=== PATIENT | female | born 1960 | race Caucasian/White ===

== ENCOUNTER 2020-09-19 16:56 | Inpatient (IN) | payer BC ==
[2020-09-19] MEDS ORDERED: Sodium Chloride 0.9% 1,000 ML IV STA (17:28)
[2020-09-19] MEDS ORDERED: Ondansetron 4 MG/2 ML SDV IVPUSH ONE (17:28)
[2020-09-19] MEDS ORDERED: HYDROmorphone 1 MG/ML Syringe IVPUSH ONE (17:29)
[2020-09-19] MEDS: Sodium Chloride 0.9% 10 ML Syringe FLUSH PRN ×2 (17:37→19:18)
--- NOTE | 2020-09-19 17:44 | EDM.PDOC ---
ED HPI GENERAL MEDICAL PROBLEM - General Chief Complaint: Abdominal Pain Stated Complaint: ABDOMINAL PAIN Time Seen by Provider: 09/19/20 17:09 Source of Information: Reports: Patient History Limitations: Reports: No Limitations - History of Present Illness INITIAL COMMENTS - FREE TEXT/NARRATIVE: The patient presents with abdominal pain. This started this morning. The pain is all over her abdomen. She denies nausea or vomiting. She has no fever, cough, chest pain, shortness of breath, diarrhea or dysuria. She still has her appendix and gallbladder. Onset: Gradual Duration: Hour(s): Location: Reports: Abdomen Quality: Reports: Sharp Severity: Moderate Improves with: Reports: None Worsens with: Reports: None Associated Symptoms: Reports: Fever/Chills. Denies: Chest Pain, Cough, Headaches, Nausea/Vomiting, Shortness of Breath Abdomen Pain Score (Numeric/FACES): 8 - Related Data Allergies Allergy/AdvReac Type Severity Reaction Status Date / Time azithromycin [From Zithromax] Allergy Severe Rash Verified 09/19/20 17:08 Home Meds: Home Meds . [No Known Home Meds] 09/19/20 [History] Past Medical History - Past Surgical History Female Surgical History: Reports: Section Social & Family History - Tobacco Use Tobacco Use Status *Q: Never Tobacco User - Recreational Drug Use Recreational Drug Use: No ED ROS GENERAL - Review of Systems Review Of Systems: See Below Constitutional: Reports: Chills. Denies: Fever HEENT: Reports: No Symptoms Respiratory: Reports: No Symptoms Cardiovascular: Reports: No Symptoms Endocrine: Reports: No Symptoms GI/Abdominal: Reports: Abdominal Pain. Denies: Diarrhea, Nausea, Vomiting : Reports: No Symptoms Musculoskeletal: Reports: No Symptoms ED EXAM, GI/ABD - Physical Exam Exam: See Below Exam Limited By: No Limitations General Appearance: Alert, No Apparent Distress Ears: Normal External Exam Nose: Normal Inspection Head: Atraumatic, Normocephalic Neck: Normal Inspection Respiratory/Chest: No Respiratory Distress, Lungs Clear, Normal Breath Sounds Cardiovascular: Regular Rate, Rhythm, No Edema, No Murmur GI/Abdominal Exam: Soft, No Organomegaly, No Mass, Tender (Moderate tenderness to the entire abdomen) Course - Vital Signs Last Recorded V/S: Last Vital Signs Temp 97.2 F 09/19/20 17:06 Pulse 58 L 09/19/20 17:06 Resp 16 09/19/20 17:06 BP 154/76 H 09/19/20 17:06 Pulse Ox 98 09/19/20 17:06 - Orders/Labs/Meds Orders: Active Orders 24 hr Category Date Time Status Peripheral IV Care [RC] . DIRECTED Care 09/19/20 17:28 Active Abdomen Pelvis w Cont [CT] Stat Exams 09/19/20 17:28 Taken CORONAVIRUS COVID-19 JOON [MOLEC] Stat Lab 09/19/20 19:36 Ordered Lactated Ringers [Ringers, Lactated] 1,000 ml Med 09/19/20 18:45 Active IV ASDIRECTED Piperacillin/Tazobactam [Piperacil-Tazobact] 4.5 gm Med 09/19/20 19:40 Active Sodium Chloride 0.9% [Normal Saline] 100 ml IV ONETIME Sodium Chloride 0.9% [Saline Flush] Med 09/19/20 18:30 Active 10 ml FLUSH ASDIRECTED Sodium Chloride 0.9% [Saline Flush] Med 09/19/20 17:28 Active 10 ml FLUSH ASDIRECTED PRN ED Antiemetic Medication Reflex [OM.PC] Stat Oth 09/19/20 17:28 Ordered Peripheral IV Insertion Adult [OM.PC] Stat Oth 09/19/20 17:28 Ordered Medication Orders Lactated Ringer's (Ringers, Lactated) 1,000 mls @ 100 mls/hr IV ASDIRECTED ANA LAURA Piperacillin Sod/Tazobactam (Sod 4.5 gm/ Sodium Chloride) 100 mls @ 200 mls/hr IV ONETIME ONE Stop: 09/19/20 20:09 Sodium Chloride (Sodium Chloride 0.9% 10 Ml Syringe) 10 ml FLUSH ASDIRECTED PRN PRN Reason: Keep Vein Open Last Admin: 09/19/20 19:18 Dose: 10 ml Documented by: Admin: 09/19/20 17:37 Dose: 10 ml Documented by: BRADLEY Sodium Chloride (Sodium Chloride 0.9% 10 Ml Syringe) 10 ml FLUSH ASDIRECTED [facility] Labs: Laboratory Tests 09/19/20 09/19/20 09/19/20 Range/Units 17:40 17:40 18:31 WBC 17.25 H (3.98-10.04) K/mm3 RBC 4.91 (3.98-5.22) M/mm3 Hgb 15.3 (11.2-15.7) gm/dl Hct 44.5 (34.1-44.9) % MCV 90.6 D (79.4-94.8) fl MCH 31.2 (25.6-32.2) pg MCHC 34.4 (32.2-35.5) g/dl RDW Std Deviation 39.9 (36.4-46.3) fL Plt Count 273 (182-369) K/mm3 MPV 10.9 (9.4-12.3) fl Neut % (Auto) 83.6 H (34.0-71.1) % Lymph % (Auto) 10.4 L (19.3-51.7) % [place] % (Auto) 5.2 (4.7-12.5) % Eos % (Auto) 0.1 L (0.7-5.8) Baso % (Auto) 0.2 (0.1-1.2) % Neut # (Auto) 14.43 H (1.56-6.13) K/mm3 Lymph # (Auto) 1.80 (1.18-3.74) K/mm3 [place] # (Auto) 0.89 H (0.24-0.36) K/mm3 Eos # (Auto) 0.02 L (0.04-0.36) K/mm3 Baso # (Auto) 0.03 (0.01-0.08) K/mm3 Manual Slide Review Sodium 138 (136-145) mEq/L Potassium 3.4 L (3.5-5.1) mEq/L Chloride 100 (98-107) mEq/L Carbon Dioxide 23 (21-32) mEq/L Anion Gap 18.4 H (5-15) BUN 18 (7-18) mg/dL Creatinine 0.9 (0.55-1.02) mg/dL Est Cr Clr Drug Dosing 69.47 mL/min Estimated GFR (MDRD) > 60 (>60) mL/min BUN/Creatinine Ratio 20.0 H (14-18) Glucose 123 H (74-106) mg/dL Calcium 9.2 (8.5-10.1) mg/dL Total Bilirubin 0.9 (0.2-1.0) mg/dL AST 17 (15-37) U/L ALT 33 (14-59) U/L Alkaline Phosphatase 95 (46-116) U/L Total Protein 7.9 (6.4-8.2) g/dl Albumin 3.9 (3.4-5.0) g/dl Globulin 4.0 gm/dL Albumin/Globulin Ratio 1.0 (1-2) Lipase 126 (73-393) U/L Urine Color Yellow (Yellow) Urine Appearance Slt cloudy H (Clear) Urine pH 6.5 (5.0-8.0) Ur Specific [place] > or = 1.030 (1.005-1.030) Urine Protein Trace H (Negative) Urine Glucose (UA) Negative (Negative) Urine Ketones 1+ H (Negative) Urine Occult Blood 1+ H (Negative) Urine Nitrite Negative (Negative) Urine Bilirubin Negative (Negative) Urine Urobilinogen 0.2 (0.2-1.0) Ur Leukocyte Esterase Negative (Negative) Urine RBC 5-10 H (0-5) /hpf Urine WBC 0-5 (0-5) /hpf Ur Squamous Epith Cells 0-5 (0-5) /hpf Urine Bacteria Few (FEW) /hpf Urine Mucus Many H (FEW) /hpf Meds: Medications Generic Name Dose Route Start Last Admin Trade Name Freq PRN Reason Stop Dose Admin Lactated Ringer's 1,000 mls @ 100 mls/hr 09/19/20 18:45 Ringers, Lactated IV ASDIRECTED ANA LAURA Piperacillin Sod/Tazobactam 100 mls @ 200 mls/hr 09/19/20 19:40 Sod 4.5 gm/ Sodium Chloride IV 09/19/20 20:09 ONETIME ONE Sodium Chloride 10 ml 09/19/20 17:28 09/19/20 19:18 Sodium Chloride 0.9% 10 Ml Syringe FLUSH 10 ml ASDIRECTED PRN Administration Keep Vein Open Sodium Chloride 10 ml 09/19/20 18:30 Sodium Chloride 0.9% 10 Ml Syringe FLUSH ASDIRECTED ANA LAURA Discontinued Medications Generic Name Dose Route Start Last Admin Trade Name Freq PRN Reason Stop Dose Admin Diatrizoate Meglum/Diatrizoate Sod 120 ml 09/19/20 18:16 09/19/20 19:17 Diatrizoate Meglumine/Diatrizoate Sodium 37% 120 Ml Bottle PO 09/19/20 18:17 45 ml ONETIME ONE Administration Hydromorphone HCl 1 mg 09/19/20 17:29 09/19/20 17:36 Hydromorphone 1 Mg/Ml Syringe IVPUSH 09/19/20 17:30 1 mg ONETIME ONE Administration Sodium Chloride 1,000 mls @ 1,000 mls/hr 09/19/20 17:28 09/19/20 17:36 Normal Saline IV 09/19/20 18:27 1,000 mls/hr .BOLUS STA Administration Iopamidol 50 ml 09/19/20 18:16 09/19/20 19:18 Iopamidol 612 Mg/Ml 50 Ml Sdv IVPUSH 09/19/20 18:17 50 ml ONETIME ONE Administration Iopamidol 100 ml 09/19/20 18:16 09/19/20 19:18 Iopamidol 612 Mg/Ml 100 Ml Bottle IVPUSH 09/19/20 18:17 100 ml ONETIME ONE Administration Metoclopramide HCl 10 mg 09/19/20 18:35 09/19/20 18:39 Metoclopramide 10 Mg/2 Ml Sdv IVPUSH 09/19/20 18:36 10 mg ONETIME ONE Administration Ondansetron HCl 4 mg 09/19/20 17:28 09/19/20 17:36 Ondansetron 4 Mg/2 Ml Sdv IVPUSH 09/19/20 17:29 4 mg ONETIME ONE Administration - Re-Assessments/Exams Free Text/Narrative Re-Assessment/Exam: 09/19/20 17:43 I ordered an IV NS 1L bolus, zofran 4mg IV, dilaudid 1mg IV, labs, UA and a CT of her abdomen and pelvis with IV and oral contrast. 09/19/20 18:58 His WBC was elevated at 17.25. Her K was a little low at 3.4. Her anion gap is elevated at 18.4. Her glucose is elevated at 123. Her lipase is normal. Her UA shows no UTI. She did vomit after drinking the contrast. I ordered reglan 10mg IV. She will be getting the CT now. 09/19/20 19:[address] shows acute appendicitis. I called Dr Ash. She will come see the patient. She wants zosyn 4.5 grams IV. Departure - Departure Time of Disposition: 19:45 Disposition: DC/Tfer to [facility] Condition: Fair Clinical Impression: Appendicitis Qualifiers: Appendicitis type: acute appendicitis Acute appendicitis type: other Qualified Code(s): K35.890 - Other acute appendicitis without perforation or gangrene; K35.89 - Other acute appendicitis - Discharge Information Referrals: PCP,None [Primary Care Provider] - Forms: ED Department Discharge Sepsis Event Note (ED) - Evaluation Sepsis Screening Result: No Definite Risk - Focused Exam Vital Signs: Vital Signs Temp Pulse Resp BP Pulse Ox 09/19/20 17:06 97.2 F 58 L 16 154/76 H 98 - My Orders Last 24 Hours: My Active Orders 09/19/20 17:28 Peripheral IV Care [RC] . DIRECTED Abdomen Pelvis w Cont [CT] Stat Sodium Chloride 0.9% [Saline Flush] 10 ml FLUSH ASDIRECTED PRN ED Antiemetic Medication Reflex [OM.PC] Stat Peripheral IV Insertion Adult [OM.PC] Stat 09/19/20 18:30 Sodium Chloride 0.9% [Saline Flush] 10 ml FLUSH ASDIRECTED 09/19/20 18:45 Lactated Ringers [Ringers, Lactated] 1,000 ml IV ASDIRECTED 09/19/20 19:36 CORONAVIRUS COVID-19 JOON [MOLEC] Stat 09/19/20 19:40 Piperacillin/Tazobactam [Piperacil-Tazobact] 4.5 gm Sodium Chloride 0.9% [Normal Saline] 100 ml IV ONETIME - Assessment/Plan Last 24 Hours: My Active Orders 09/19/20 17:28 Peripheral IV Care [RC] . DIRECTED Abdomen Pelvis w Cont [CT] Stat Sodium Chloride 0.9% [Saline Flush] 10 ml FLUSH ASDIRECTED PRN ED Antiemetic Medication Reflex [OM.PC] Stat Peripheral IV Insertion Adult [OM.PC] Stat 09/19/20 18:30 Sodium Chloride 0.9% [Saline Flush] 10 ml FLUSH ASDIRECTED 09/19/20 18:45 Lactated Ringers [Ringers, Lactated] 1,000 ml IV ASDIRECTED 09/19/20 19:36 CORONAVIRUS COVID-19 JOON [MOLEC] Stat 09/19/20 19:40 Piperacillin/Tazobactam [Piperacil-Tazobact] 4.5 gm Sodium Chloride 0.9% [Normal Saline] 100 ml IV ONETIME
[2020-09-19] MEDS ORDERED: Diatrizoate Meglumine/Diatrizoate Sodium 37% 120 ML Bottle PO ONE (18:16)
[2020-09-19] MEDS ORDERED: Iopamidol 612 MG/ML 50 ML SDV IVPUSH ONE (18:16)
[2020-09-19] MEDS ORDERED: Iopamidol 612 MG/ML 100 ML Bottle IVPUSH ONE (18:16)
[2020-09-19] MEDS ORDERED: Sodium Chloride 0.9% 10 ML Syringe FLUSH SCH (18:30)
[2020-09-19] MEDS ORDERED: Metoclopramide 10 MG/2 ML SDV IVPUSH ONE (18:35)
[2020-09-19] MEDS ORDERED: Lactated Ringers 1,000 ML IV SCH (18:45)
[2020-09-19] MEDS ORDERED: Piperacillin/Tazobactam 4.5 GM in Sodium Chloride 0.9% 100 ML IV ONE (19:40)
--- NOTE | 2020-09-19 19:42 | CT ---
CT abdomen and pelvis Technique: Multiple axial sections were obtained from above the dome of the diaphragm inferiorly through the pubic symphysis. Intravenous and oral contrast was utilized. Delayed images were also obtained through the bladder. Reconstructed coronal and sagittal images were obtained. Comparison: No prior abdominal imaging is available. Findings: Appendix is dilated and contains fluid as well as mild surrounding inflammatory change. Findings are felt compatible with appendicitis. Other findings: Multiple small air cysts are seen within both lungs. Liver shows no focal parenchymal abnormality but contains mild fatty infiltration. Spleen is normal. Adrenal glands show no nodule. Pancreas shows no focal abnormality. Gallbladder contains no calcified gallstones. Kidneys show symmetric contrast enhancement without hydronephrosis or mass. Abdominal aorta shows no aneurysm. No retroperitoneal adenopathy or mesenteric abnormalities are seen. No pelvic mass or adenopathy is appreciated. Delayed images show contrast within the ureters and within the bladder. Bone window settings were reviewed. Vacuum disc phenomena is seen within the L5-S1 disc. Degenerative change is also noted within the L5-S1 apophyseal joints. No acute osseous abnormality is appreciated. Impression: 1. Findings compatible with appendicitis as noted above. 2. Multiple small air cysts within both lungs. 3. Other findings believed to be incidental as noted above. Diagnostic code #5
--- NOTE | 2020-09-19 20:07 | PCM.PREANE ---
Preanesthetic Assessment - Procedure Proposed Procedure: Laparoscopic Appendectomy - Anesthesia/Transfusion/Family Hx Anesthesia History: Prior Anesthesia Without Reaction Family History of Anesthesia Reaction: No Transfusion History: No Prior Transfusion(s) Intubation History: Unknown - Review of Systems General: No Symptoms Pulmonary: No Symptoms (Smoker:quit 1999 ETOH: occasionaly Covid + in March 2020) Cardiovascular: No Symptoms Gastrointestinal: No Symptoms Neurological: No Symptoms Other: Reports: None - Physical Assessment NPO Status Date: 09/19/20 NPO Status Time: 17:30 Vital Signs: Last Vital Signs Temp 36.2 C 09/19/20 17:06 Pulse 58 L 09/19/20 17:06 Resp 16 09/19/20 17:06 BP 154/76 H 09/19/20 17:06 Pulse Ox 98 09/19/20 17:06 Height: 1.75 m Weight: 107.819 kg ASA Class: 3E Mental Status: Alert & Oriented x3 Airway Class: Mallampati = 2 Dentition: Reports: Normal Dentition, Caries Thyro-Mental Finger Breadths: 3 Mouth Opening Finger Breadths: 3 ROM/Head Extension: Full Lungs: Clear to Auscultation, Normal Respiratory Effort Cardiovascular: Regular Rate, Regular Rhythm, No Murmurs - Lab Values: Laboratory Last Values WBC 17.25 K/mm3 (3.98-10.04) H 09/19/20 17:40 RBC 4.91 M/mm3 (3.98-5.22) 09/19/20 17:40 Hgb 15.3 gm/dl (11.2-15.7) 09/19/20 17:40 Hct 44.5 % (34.1-44.9) 09/19/20 17:40 MCV 90.6 fl (79.4-94.8) D 09/19/20 17:40 MCH 31.2 pg (25.6-32.2) 09/19/20 17:40 MCHC 34.4 g/dl (32.2-35.5) 09/19/20 17:40 RDW Std Deviation 39.9 fL (36.4-46.3) 09/19/20 17:40 Plt Count 273 K/mm3 (182-369) 09/19/20 17:40 MPV 10.9 fl (9.4-12.3) 09/19/20 17:40 Neut % (Auto) 83.6 % (34.0-71.1) H 09/19/20 17:40 Lymph % (Auto) 10.4 % (19.3-51.7) L 09/19/20 17:40 [place] % (Auto) 5.2 % (4.7-12.5) 09/19/20 17:40 Eos % (Auto) 0.1 (0.7-5.8) L 09/19/20 17:40 Baso % (Auto) 0.2 % (0.1-1.2) 09/19/20 17:40 Neut # (Auto) 14.43 K/mm3 (1.56-6.13) H 09/19/20 17:40 Lymph # (Auto) 1.80 K/mm3 (1.18-3.74) 09/19/20 17:40 [place] # (Auto) 0.89 K/mm3 (0.24-0.36) H 09/19/20 17:40 Eos # (Auto) 0.02 K/mm3 (0.04-0.36) L 09/19/20 17:40 Baso # (Auto) 0.03 K/mm3 (0.01-0.08) 09/19/20 17:40 Manual Slide Review 09/19/20 17:40 Sodium 138 mEq/L (136-145) 09/19/20 17:40 Potassium 3.4 mEq/L (3.5-5.1) L 09/19/20 17:40 Chloride 100 mEq/L (98-107) 09/19/20 17:40 Carbon Dioxide 23 mEq/L (21-32) 09/19/20 17:40 Anion Gap 18.4 (5-15) H 09/19/20 17:40 BUN 18 mg/dL (7-18) 09/19/20 17:40 Creatinine 0.9 mg/dL (0.55-1.02) 09/19/20 17:40 Est Cr Clr Drug Dosing 69.47 mL/min 09/19/20 17:40 Estimated GFR (MDRD) > 60 mL/min (>60) 09/19/20 17:40 BUN/Creatinine Ratio 20.0 (14-18) H 09/19/20 17:40 Glucose 123 mg/dL (74-106) H 09/19/20 17:40 Calcium 9.2 mg/dL (8.5-10.1) 09/19/20 17:40 Total Bilirubin 0.9 mg/dL (0.2-1.0) 09/19/20 17:40 AST 17 U/L (15-37) 09/19/20 17:40 ALT 33 U/L (14-59) 09/19/20 17:40 Alkaline Phosphatase 95 U/L (46-116) 09/19/20 17:40 Total Protein 7.9 g/dl (6.4-8.2) 09/19/20 17:40 Albumin 3.9 g/dl (3.4-5.0) 09/19/20 17:40 Globulin 4.0 gm/dL 09/19/20 17:40 Albumin/Globulin Ratio 1.0 (1-2) 09/19/20 17:40 Lipase 126 U/L (73-393) 09/19/20 17:40 Urine Color Yellow (Yellow) 09/19/20 18:31 Urine Appearance Slt cloudy (Clear) H 09/19/20 18:31 Urine pH 6.5 (5.0-8.0) 09/19/20 18:31 Ur Specific [place] > or = 1.030 (1.005-1.030) 09/19/20 18:31 Urine Protein Trace (Negative) H 09/19/20 18:31 Urine Glucose (UA) Negative (Negative) 09/19/20 18:31 Urine Ketones 1+ (Negative) H 09/19/20 18:31 Urine Occult Blood 1+ (Negative) H 09/19/20 18:31 Urine Nitrite Negative (Negative) 09/19/20 18:31 Urine Bilirubin Negative (Negative) 09/19/20 18:31 Urine Urobilinogen 0.2 (0.2-1.0) 09/19/20 18:31 Ur Leukocyte Esterase Negative (Negative) 09/19/20 18:31 Urine RBC 5-10 /hpf (0-5) H 09/19/20 18:31 Urine WBC 0-5 /hpf (0-5) 09/19/20 18:31 Ur Squamous Epith Cells 0-5 /hpf (0-5) 09/19/20 18:31 Urine Bacteria Few /hpf (FEW) 09/19/20 18:31 Urine Mucus Many /hpf (FEW) H 09/19/20 18:31 Above labs reviewed and noted and within acceptable ranges to proceed with procedure. - Allergies Allergies/Adverse Reactions: Allergies Allergy/AdvReac Type Severity Reaction Status Date / Time azithromycin [From Zithromax] Allergy Severe Rash Verified 09/19/20 17:08 - Anesthesia Plan Pre-Op Medication Ordered: None - Acknowledgements Anesthesia Type Planned: General Anesthesia Pt an Appropriate Candidate for the Planned Anesthesia: Yes Alternatives and Risks of Anesthesia Discussed w Pt/Guardian: Yes Pt/Guardian Understands and Agrees with Anesthesia Plan: Yes PreAnesthesia Questionnaire - Past Surgical History Female Surgical History: Reports: Section - SUBSTANCE USE Tobacco Use Status *Q: Never Tobacco User Recreational Drug Use History: No - HOME MEDS Home Medications: Home Meds . [No Known Home Meds] 09/19/20 [History] - CURRENT (IN HOUSE) MEDS Current Meds: Current Medications Lactated Ringer's (Ringers, Lactated) 1,000 mls @ 100 mls/hr IV ASDIRECTED ANA LAURA Piperacillin Sod/Tazobactam (Sod 4.5 gm/ Sodium Chloride) 100 mls @ 200 mls/hr IV ONETIME ONE Stop: 09/19/20 20:09 Last Admin: 09/19/20 19:53 Dose: 200 mls/hr Documented by: Sodium Chloride (Sodium Chloride 0.9% 10 Ml Syringe) 10 ml FLUSH ASDIRECTED PRN PRN Reason: Keep Vein Open Last Admin: 09/19/20 19:18 Dose: 10 ml Documented by: Sodium Chloride (Sodium Chloride 0.9% 10 Ml Syringe) 10 ml FLUSH ASDIRECTED ANA LAURA Discontinued Medications Diatrizoate Meglum/Diatrizoate Sod (Diatrizoate Meglumine/Diatrizoate Sodium 37% 120 Ml Bottle) 120 ml PO ONETIME ONE Stop: 09/19/20 18:17 Last Admin: 09/19/20 19:17 Dose: 45 ml Documented by: Hydromorphone HCl (Hydromorphone 1 Mg/Ml Syringe) 1 mg IVPUSH ONETIME ONE Stop: 09/19/20 17:30 Last Admin: 09/19/20 17:36 Dose: 1 mg Documented by: Sodium Chloride (Normal Saline) 1,000 mls @ 1,000 mls/hr IV .BOLUS STA Stop: 09/19/20 18:27 Last Admin: 09/19/20 17:36 Dose: 1,000 mls/hr Documented by: Iopamidol (Iopamidol 612 Mg/Ml 50 Ml Sdv) 50 ml IVPUSH ONETIME ONE Stop: 09/19/20 18:17 Last Admin: 09/19/20 19:18 Dose: 50 ml Documented by: Iopamidol (Iopamidol 612 Mg/Ml 100 Ml Bottle) 100 ml IVPUSH ONETIME ONE Stop: 09/19/20 18:17 Last Admin: 09/19/20 19:18 Dose: 100 ml Documented by: Metoclopramide HCl (Metoclopramide 10 Mg/2 Ml Sdv) 10 mg IVPUSH ONETIME ONE Stop: 09/19/20 18:36 Last Admin: 09/19/20 18:39 Dose: 10 mg Documented by: Ondansetron HCl (Ondansetron 4 Mg/2 Ml Sdv) 4 mg IVPUSH ONETIME ONE Stop: 09/19/20 17:29 Last Admin: 09/19/20 17:36 Dose: 4 mg Documented by:
[2020-09-19] MEDS: Bupivacaine 0.5%/EPINEPHrine 1:200,000 50 ML MDV ONE ×2 (20:39→21:33)
[2020-09-19] MEDS: Lidocaine 1% with EPINEPHrine 1:100,000 10 ML MDV ONE ×2 (20:39→21:33)
[2020-09-19] MEDS ORDERED: HYDROmorphone 0.5 MG/0.5 ML Syringe ONE ×2 (20:41→22:25)
[2020-09-19] MEDS ORDERED: Ketorolac 30 MG/ML SDV ONE (20:41)
[2020-09-19] MEDS ORDERED: Dexamethasone 4 MG/ML 5 ML MDV ONE (20:41)
[2020-09-19] MEDS ORDERED: Succinylcholine/Sod PF 100 MG/5 ML SYRINGE IV ONE (20:41)
[2020-09-19] MEDS ORDERED: Ondansetron 4 MG/2 ML SDV ONE (20:41)
[2020-09-19] MEDS ORDERED: Lactated Ringers 2,000 ML ONE (20:41)
[2020-09-19] MEDS ORDERED: Propofol 200 MG/20 ML SDV ONE (20:41)
[2020-09-19] MEDS ORDERED: Rocuronium 50 MG/5 ML Vial ONE ×2 (20:41→22:12)
[2020-09-19] MEDS ORDERED: Lidocaine 1% 4 ML ONE (20:41)
[2020-09-19] MEDS ORDERED: Midazolam 1 MG/ML 2 ML SDV ONE (20:42)
[2020-09-19] MEDS ORDERED: fentaNYL 250 MCG/5 ML SDV ONE ×2 (20:42→21:39)
[2020-09-19] MEDS ORDERED: ePHEDrine 50 MG/ML SDV ONE (21:16)
[2020-09-19] MEDS ORDERED: diphenhydrAMINE 50 MG/ML SDV IVPUSH PRN (21:21)
[2020-09-19] MEDS ORDERED: Ondansetron 4 MG/2 ML SDV IVPUSH PRN (21:21)
[2020-09-19] MEDS ORDERED: ePHEDrine 50 MG/ML SDV IVPUSH PRN (21:21)
[2020-09-19] MEDS ORDERED: fentaNYL 100 MCG/2 ML SDV IVPUSH PRN (21:21)
[2020-09-19] MEDS ORDERED: HYDROmorphone 0.5 MG/0.5 ML Syringe IVPUSH PRN (21:21)
[2020-09-19] MEDS ORDERED: Labetalol 100 MG/20 ML MDV ONE (21:46)
[2020-09-19] MEDS ORDERED: Lactated Ringers 1,000 ML ONE (22:40)
[2020-09-19] MEDS ORDERED: Albuterol 0.083% 2.5 MG/3 ML Neb Soln NEB PRN (22:50)
--- NOTE | 2020-09-20 00:38 | PCM.OPNOTE ---
- General Post-Op/Procedure Note Date of Surgery/Procedure: 09/20/20 Operative Procedure(s): 1. Laparoscopic appendectomy, converted to open. 2. Repair of enterotomy. 3. Mobilization of cecum. 4. Lysis of adhesions Findings: Acute appendicitis with friable appendix; ruptured with stapling. Additional friable tissue on cecum necessitating open procedure for oversewing of appendiceal stump and repair of enterotomy. Lower midline adhesions present from previous c-sections. Pre Op Diagnosis: Acute appendicitis Post-Op Diagnosis: same Anesthesia Technique: General ET Tube Primary Surgeon: Carmela Castillo Anesthesia Provider: Vianney Livingston Pathology: Appendix Fluid Replacement, Intraop: 2,000 Output, Urine Amount: 0 EBL in mLs: 150 Complications: none apparent Condition: Good
--- NOTE | 2020-09-20 00:39 | PCM.PRNOTE ---
- Free Text/Narrative Note: Operative Report Date of surgery: September 20, 2020 Preoperative diagnosis: acute appendicitis. Postoperative diagnosis: same Procedure performed: 1. Laparoscopic appendectomy, converted to open. 2. Repair of enterotomy. 3. Mobilization of cecum 4. Lysis of adhesions Surgeon: Dr. Carmela Castillo Anesthesia: General Inside Plant Supervisor: Vianney Livingston CRNA Estimated blood loss: 150 mL IV fluids: 2000 mL Urine output: 0 mL Drains and lines: none Findings: Acute appendicitis with friable appendix; ruptured with stapling. Additional friable tissue on cecum necessitating open procedure for oversewing of appendiceal stump and repair of enterotomy. Lower midline adhesions present from previous c-sections. Pathology: Appendix Indications for procedure: The patient is a 60 y/o lady who presented with a one day history of pain in the upper abdomen, radiating throughout the whole abdomen. She reports associated nausea and vomiting. She had ED evaluation consistent with acute appendicitis. She was counseled for a laparoscopic appendectomy, possible open with risks of intraabdominal injury, bleeding and in fection discussed. Her written consent was obtained. Description of procedure: The patient was taken back to the operating room and placed in supine position on the operating table. SCD boots were in place and functional prior to the start of the procedure. Preoperative antibiotics were administered in the ED for the patient's acute appendicitis. The patient had successful induction of general anesthesia and was intubated without difficulty. Pt was then prepped and draped in standard surgical fashion and a timeout was performed. We began by making a 15 mm incision in the infraumbilical skin and deepened down to level of the fascia which was then grasped and incised sharply. We entered the peritoneum and then placed stay sutures of 0 Vicryl on the fascial edges. A 12 mm Arnold port was then placed into the umbilicus and the balloon was inflated. The abdomen was insufflated to 15 mmHg a 5 mm camera was inserted. There was no evidence of any injury created from entry into the abdomen. A TAP block was performed using mixed 1% lidocaine with epinephrine and 0.5% bupivacaine with epinephrine . We then proceeded to place a 5 mm port under direct visualization in the suprapubic midline and an additional 5mm port in the left lower quadrant. The patient was then positioned in Trendelenburg with right side elevated and we proceeded to mobilize the appendix. The appendix was retrocecal at its attachment, and extended into the pelvis. It was inflamed and friable. The mesoappendix was dissected free using the LigaSure. We then deployed a tissue staple load at the base of the appendix. When this was firing the appendix fractured underneath the staple line and there is purulent exudate from this area. There was also purulent exudate from the appendix. We then attempted to mobilize the cecum to facilitate a lower staple line over the very base of the appendix and part of the cecum. The cecal tissue was very thickened and friable. The fat pad between the cecum and the terminal ileum was removed for additional visualization. Attempts at grasping the cecum in this area for an additional staple line caused an enterotomy. It was determined at this point to convert the case to open. The infraumbilical incision was then extended to the lower midline to connect to the suprapubic incision. The Bovie device was used to open the fascia and subcutaneous fat. We then attempted to visualize the appendix and cecum. The omentum was very dense and thickened consistent with inflammatory and fibrous changes. It was adherent to the lower midline consistent with previous C- section scars. Adhesions were lysed in this area in order to fully open the midline incision for placement of retractors. This was done using Metzenbaum scissors as well as the Bovie device once we had completed this portion we were able to visualize the cecum. The specimen was removed. An enterotomy was noted on the lateral aspect of the cecum. This was repaired using erupted 3-0 silk L embert sutures. We then inspected the inferior portion of the cecum where the appendiceal stump was located. Additional mobilization of the cecum and part of the white line of Toldt was necessary to visualize the appendix more fully. There was some feculent discharge into the abdomen from the open appendiceal stump. The appendiceal stump was then oversewed using 3-0 Vicryl suture. There was an enterotomy extending up to the tenia. This was closed down to the level of the appendiceal stump using interrupted 3-0 silk Lembert sutures. Attempt was made to close tissue over the seal stump, however there was no movable tissue to cover this area due to the friability and inflammation of the tissues. We then inspected for hemostasis. Bleeding points were addressed in the mesentery using the LigaSure device. The abdomen was then irrigated with 2 L of warm saline. The fascia was closed with a running 0 PDS suture. The wound was irrigated and closed in 2 layers of 3-0 Vicryl interrupted sutures with two 4-0 Monocryl sutures placed in the central top layer of the midline incision. The additional left lateral port site was closed with 4-0 Monocryl. Mastisol and Steri-Strips were applied. The incisions were then covered with a dry dressing. The specimen was in place in the Endo Catch bag. We then inspected and suctioned up any blood in the area. There was no active bleeding at the end of this case. The abdomen was then desufflated and the umbilical fascia closed with 0 Vicryl sutures and the stay sutures were tied, effectively closing the umbilical port site. The skin was then reapproximated at all port sites using a 4-0 Monocryl subcutaneous stitch and covered with Dermabond surgical glue. The patient tolerated the procedure. She was extubated and transported to the PACU in stable condition. All sponge and needle counts were correct. Carmela Castillo MD General surgery
--- NOTE | 2020-09-20 00:41 | PCM.POSTAN ---
POST ANESTHESIA ASSESSMENT - MENTAL STATUS Mental Status: Alert - VITAL SIGNS Vital Signs: Last Vital Signs Temp 97.4 09/19/2032 Pulse 66 09/19/203 Resp 8 09/19/203 BP 139/71 09/19/203 Pulse Ox 96% 09/19/20 0033 - RESPIRATORY Respiratory Status: Respiratory Rate WNL, Airway Patent, O2 Saturation Stable, Supplemental Oxygen - CARDIOVASCULAR CV Status: Pulse Rate WNL, Blood Pressure Stable - GASTROINTESTINAL GI Status: No Symptoms - POST OP HYDRATION Hydration Status: Adequate & Stable
--- NOTE | 2020-09-20 01:04 | PCM.HP.2 ---
H&P History of Present Illness - General Date of Service: 09/20/20 Admit Problem/Dx: Admission Diagnosis/Problem Admission Diagnosis/Problem Appendicitis Source of Information: Patient, Provider History Limitations: Reports: No Limitations - History of Present Illness Initial Comments - Free Text/Narative: The patient is a 60 y/o lady who presented to the emergency department complaining of abdominal pain that started early on the day of presentation. She reports having normal bowel movements over the course of the day. She presented because her pain did not improve. She had associated nausea and vomiting. In the ED, she was found to have elevated WBC to 17K and CT abdomen findings consistent with acute appendicitis. Abdomen Pain Score (Numeric/FACES): 8 - Related Data Allergies/Adverse Reactions: Allergies Allergy/AdvReac Type Severity Reaction Status Date / Time azithromycin [From Zithromax] Allergy Severe Rash Verified 09/19/20 17:08 Home Medications: Home Meds . [No Known Home Meds] 09/19/20 [History] Past Medical History - Past Surgical History Female Surgical History: Reports: Section Social & Family History - Family History Cardiac: Reports: CAD Neurological: Reports: CVA Endocrine/Metabolic: Reports: Diabetes, Type I Oncologic: Reports: Renal - Tobacco Use Tobacco Use Status *Q: Never Tobacco User - Recreational Drug Use Recreational Drug Use: No H&P Review of Systems - Review of Systems: Review Of Systems: See Below General: Reports: No Symptoms HEENT: Reports: No Symptoms Pulmonary: Reports: No Symptoms Cardiovascular: Reports: No Symptoms Gastrointestinal: Reports: Abdominal Pain, Nausea, Vomiting Genitourinary: Reports: No Symptoms Musculoskeletal: Reports: No Symptoms Skin: Reports: No Symptoms Psychiatric: Reports: No Symptoms Neurological: Reports: No Symptoms Hematologic/Lymphatic: Reports: No Symptoms Exam - Exam Exam: See Below - Vital Signs Vital Signs: Last Vital Signs Temp 36.4 C 09/20/20 00:50 Pulse 62 09/20/20 00:50 Resp 10 L 09/20/20 00:50 BP 121/76 09/20/20 00:50 Pulse Ox 98 09/20/20 00:50 Weight: 107.819 kg - Exam Quality Assessment: No: Supplemental Oxygen General: Alert, Oriented HEENT: Conjunctiva Clear, EOMI Neck: Supple Lungs: Clear to Auscultation, Normal Respiratory Effort Cardiovascular: Regular Rate, Regular Rhythm GI/Abdominal Exam: Soft, Tender (in LLQ) Extremities: No Pedal Edema Peripheral Pulses: 2+: Dorsalis Pedis (L), Dorsalis Pedis (R) Skin: Warm, Dry, Intact Neurological: Cranial Nerves Intact Neuro Extensive - Mental Status: Oriented x3, Normal Mood/Affect - Patient Data Lab Results Last 24 hrs: Laboratory Results - last 24 hr 09/19/20 09/19/20 09/19/20 Range/Units 17:40 17:40 18:31 WBC 17.25 H (3.98-10.04) K/mm3 RBC 4.91 (3.98-5.22) M/mm3 Hgb 15.3 (11.2-15.7) gm/dl Hct 44.5 (34.1-44.9) % MCV 90.6 D (79.4-94.8) fl MCH 31.2 (25.6-32.2) pg MCHC 34.4 (32.2-35.5) g/dl RDW Std Deviation 39.9 (36.4-46.3) fL Plt Count 273 (182-369) K/mm3 MPV 10.9 (9.4-12.3) fl Neut % (Auto) 83.6 H (34.0-71.1) % Lymph % (Auto) 10.4 L (19.3-51.7) % [place] % (Auto) 5.2 (4.7-12.5) % Eos % (Auto) 0.1 L (0.7-5.8) Baso % (Auto) 0.2 (0.1-1.2) % Neut # (Auto) 14.43 H (1.56-6.13) K/mm3 Lymph # (Auto) 1.80 (1.18-3.74) K/mm3 [place] # (Auto) 0.89 H (0.24-0.36) K/mm3 Eos # (Auto) 0.02 L (0.04-0.36) K/mm3 Baso # (Auto) 0.03 (0.01-0.08) K/mm3 Manual Slide Review Sodium 138 (136-145) mEq/L Potassium 3.4 L (3.5-5.1) mEq/L Chloride 100 (98-107) mEq/L Carbon Dioxide 23 (21-32) mEq/L Anion Gap 18.4 H (5-15) BUN 18 (7-18) mg/dL Creatinine 0.9 (0.55-1.02) mg/dL Est Cr Clr Drug Dosing 69.47 mL/min Estimated GFR (MDRD) > 60 (>60) mL/min BUN/Creatinine Ratio 20.0 H (14-18) Glucose 123 H (74-106) mg/dL Calcium 9.2 (8.5-10.1) mg/dL Total Bilirubin 0.9 (0.2-1.0) mg/dL AST 17 (15-37) U/L ALT 33 (14-59) U/L Alkaline Phosphatase 95 (46-116) U/L Total Protein 7.9 (6.4-8.2) g/dl Albumin 3.9 (3.4-5.0) g/dl Globulin 4.0 gm/dL Albumin/Globulin Ratio 1.0 (1-2) Lipase 126 (73-393) U/L Urine Color Yellow (Yellow) Urine Appearance Slt cloudy H (Clear) Urine pH 6.5 (5.0-8.0) Ur Specific [place] > or = 1.030 (1.005-1.030) Urine Protein Trace H (Negative) Urine Glucose (UA) Negative (Negative) Urine Ketones 1+ H (Negative) Urine Occult Blood 1+ H (Negative) Urine Nitrite Negative (Negative) Urine Bilirubin Negative (Negative) Urine Urobilinogen 0.2 (0.2-1.0) Ur Leukocyte Esterase Negative (Negative) Urine RBC 5-10 H (0-5) /hpf Urine WBC 0-5 (0-5) /hpf Ur Squamous Epith Cells 0-5 (0-5) /hpf Urine Bacteria Few (FEW) /hpf Urine Mucus Many H (FEW) /hpf SARS-CoV-2 RNA (JOON) (NEGATIVE) 09/19/20 Range/Units 19:42 WBC (3.98-10.04) K/mm3 RBC (3.98-5.22) M/mm3 Hgb (11.2-15.7) gm/dl Hct (34.1-44.9) % MCV (79.4-94.8) fl MCH (25.6-32.2) pg MCHC (32.2-35.5) g/dl RDW Std Deviation (36.4-46.3) fL Plt Count (182-369) K/mm3 MPV (9.4-12.3) fl Neut % (Auto) (34.0-71.1) % Lymph % (Auto) (19.3-51.7) % [place] % (Auto) (4.7-12.5) % Eos % (Auto) (0.7-5.8) Baso % (Auto) (0.1-1.2) % Neut # (Auto) (1.56-6.13) K/mm3 Lymph # (Auto) (1.18-3.74) K/mm3 [place] # (Auto) (0.24-0.36) K/mm3 Eos # (Auto) (0.04-0.36) K/mm3 Baso # (Auto) (0.01-0.08) K/mm3 Manual Slide Review Sodium (136-145) mEq/L Potassium (3.5-5.1) mEq/L Chloride (98-107) mEq/L Carbon Dioxide (21-32) mEq/L Anion Gap (5-15) BUN (7-18) mg/dL Creatinine (0.55-1.02) mg/dL Est Cr Clr Drug Dosing mL/min Estimated GFR (MDRD) (>60) mL/min BUN/Creatinine Ratio (14-18) Glucose (74-106) mg/dL Calcium (8.5-10.1) mg/dL Total Bilirubin (0.2-1.0) mg/dL AST (15-37) U/L ALT (14-59) U/L Alkaline Phosphatase (46-116) U/L Total Protein (6.4-8.2) g/dl Albumin (3.4-5.0) g/dl Globulin gm/dL Albumin/Globulin Ratio (1-2) Lipase (73-393) U/L Urine Color (Yellow) Urine Appearance (Clear) Urine pH (5.0-8.0) Ur Specific [place] (1.005-1.030) Urine Protein (Negative) Urine Glucose (UA) (Negative) Urine Ketones (Negative) Urine Occult Blood (Negative) Urine Nitrite (Negative) Urine Bilirubin (Negative) Urine Urobilinogen (0.2-1.0) Ur Leukocyte Esterase (Negative) Urine RBC (0-5) /hpf Urine WBC (0-5) /hpf Ur Squamous Epith Cells (0-5) /hpf Urine Bacteria (FEW) /hpf Urine Mucus (FEW) /hpf SARS-CoV-2 RNA (JOON) Negative (NEGATIVE) Result Diagrams: 09/19/20 17:40 09/19/20 17:40 Sepsis Event Note - Evaluation Sepsis Screening Result: No Definite Risk - Focused Exam Vital Signs: Vital Signs Temp Pulse Resp BP Pulse Ox Pulse Ox 09/20/20 00:50 36.4 C 62 10 L 121/76 98 09/20/20 00:40 62 8 L 140/86 97 09/20/20 00:33 36.3 C 60 8 L 139/71 96 96 09/19/20 17:06 36.2 C 58 L 16 154/76 H 98 *Q Meaningful Use (ADM) - VTE Risk Assess *Q Each Risk Factor Represents 2 Points: Age 60 - 74 Years, Major surgery greater than 45 minutes Total Score 2 Point Risk Factors: 4 - Problem List (1) Appendicitis SNOMED Code(s): 64819414 ICD Code: K37 - UNSPECIFIED APPENDICITIS Status: Acute Current Visit: Yes Qualifiers: Appendicitis type: acute appendicitis Acute appendicitis type: other Qualified Code(s): K35.890 - Other acute appendicitis without perforation or [place]; K35.89 - Other acute appendicitis Problem List Initiated/Reviewed/Updated: Yes Orders Last 24hrs: Active Orders 24 hr Category Date Time Status Admission Status [Patient Status] [ADT] Routine ADT 09/19/20 19:46 Active Communication Order [RC] ROUTINE Care 09/19/20 21:21 Active Cooling Warming Measures [RC] ASDIRECTED Care 09/19/20 21:21 Active Notify Provider [RC] ASDIRECTED Care 09/19/20 21:21 Active Oxygen Therapy [RC] ASDIRECTED Care 09/19/20 21:20 Active Peripheral IV Care [RC] . DIRECTED Care 09/19/20 17:28 Active Pulse Oximetry [RC] ASDIRECTED Care 09/19/20 21:20 Active RT Aerosol Therapy [RC] ASDIRECTED Care 09/19/20 22:50 Active Vital Signs [RC] Q15M Care 09/19/20 21:20 Active Albuterol [Proventil Neb Soln] Med 09/19/20 22:50 Active 2.5 mg NEB ONETIME PRN HYDROmorphone [Dilaudid] Med 09/19/20 21:21 Active 0.5 mg IVPUSH Q10M PRN Lactated Ringers [Ringers, Lactated] 1,000 ml Med 09/19/20 18:45 Active IV ASDIRECTED Ondansetron [Zofran] Med 09/19/20 21:21 Active 4 mg IVPUSH ONETIME PRN Phenylephrine HCl In 0.9% NaCl [Phenylephrine 1 MG/10 Med 09/19/20 21:21 Active ML-NS] 0.1 mg IVPUSH Q10M PRN Sodium Chloride 0.9% [Saline Flush] Med 09/19/20 18:30 Active 10 ml FLUSH ASDIRECTED Sodium Chloride 0.9% [Saline Flush] Med 09/19/20 17:28 Active 10 ml FLUSH ASDIRECTED PRN diphenhydrAMINE [Benadryl] Med 09/19/20 21:21 Active 25 mg IVPUSH Q6H PRN ePHEDrine [ePHEDrine sulfate] Med 09/19/20 21:21 Active 5 mg IVPUSH ASDIRECTED PRN fentaNYL [Sublimaze] Med 09/19/20 21:21 Active 50 mcg IVPUSH Q20M PRN ED Antiemetic Medication Reflex [OM.PC] Stat Ot 09/19/20 17:28 Ordered Peripheral IV Insertion Adult [OM.PC] Stat Oth 09/19/20 17:28 Ordered Schedule Procedure [COMM] Stat Ot 09/19/20 19:47 Ordered Medication Orders Albuterol (Albuterol 0.083% 2.5 Mg/3 Ml Neb Soln) 2.5 mg NEB ONETIME PRN PRN Reason: bronchodilation Diphenhydramine HCl (Diphenhydramine 50 Mg/Ml Sdv) 25 mg IVPUSH Q6H PRN PRN Reason: pruritis Ephedrine Sulfate (Ephedrine 50 Mg/Ml Sdv) 5 mg IVPUSH ASDIRECTED PRN PRN Reason: Hypotension Fentanyl (Fentanyl 100 Mcg/2 Ml Sdv) 50 mcg IVPUSH Q20M PRN PRN Reason: Pain Hydromorphone HCl (Hydromorphone 0.5 Mg/0.5 Ml Syringe) 0.5 mg IVPUSH Q10M PRN PRN Reason: Pain (severe 7-10) Lactated Ringer's (Ringers, Lactated) 1,000 mls @ 100 mls/hr IV ASDIRECTED [facility] Miscellaneous Medication (Phenylephrine Hcl In 0.9% Nacl 1 Mg/10 Ml Syringe) 0.1 mg IVPUSH Q10M PRN PRN Reason: Hypotension Ondansetron HCl (Ondansetron 4 Mg/2 Ml Sdv) 4 mg IVPUSH ONETIME PRN PRN Reason: Nausea/Vomiting Sodium Chloride (Sodium Chloride 0.9% 10 Ml Syringe) 10 ml FLUSH ASDIRECTED PRN PRN Reason: Keep Vein Open Last Admin: 09/19/20 19:18 Dose: 10 ml Documented by: Admin: 09/19/20 17:37 Dose: 10 ml Documented by: BRADLEY Sodium Chloride (Sodium Chloride 0.9% 10 Ml Syringe) 10 ml FLUSH ASDIRECTED [facility] Assessment/Plan Comment:: 60y/o lady with acute appendicitis; taken to OR for appendectomy. See operative report for details. - IV zosyn given in ED. Will continue for 24 hours - May have regular diet after surgery - scheduled ibuprofen and tylenol with breakthrough oxycodone - IVF D5 1/2NS @80 - incentive spirometry - up ad isabel, SCDs and heparin SubQ for DVT PPX Carmela Castillo MD General surgery - Mortality Measure Prognosis:: Good
[2020-09-20] MEDS ORDERED: oxyCODONE 5 MG Tab PO PRN (01:12)
[2020-09-20] MEDS ORDERED: Ibuprofen 600 MG Tab PO SCH (01:15)
[2020-09-20] MEDS ORDERED: Acetaminophen 325 MG Tab PO SCH (01:15)
[2020-09-20] MEDS ORDERED: Dextrose 5%-0.45% NaCl 1,000 ML IV SCH (01:30)
[2020-09-20] MEDS: Ibuprofen 600 MG Tab PO SCH ×4 (03:25→21:42)
[2020-09-20] MEDS: Acetaminophen 325 MG Tab PO SCH ×5 (03:26→18:51)
[2020-09-20] MEDS: Ondansetron 4 MG Tab.DIS PO SCH ×4 (03:27→18:50)
[2020-09-20] MEDS: Piperacillin/Tazobactam 4.5 GM in Sodium Chloride 0.9% 100 ML IV SCH ×2 (03:29→12:46)
--- NOTE | 2020-09-20 08:03 | PCM48HPAN ---
Post Anesthesia Note - EVALUATION WITHIN 48HRS OF ANESTHETIC Vital Signs in Normal Range: Yes Patient Participated in Evaluation: Yes Respiratory Function Stable: Yes Airway Patent: Yes Cardiovascular Function Stable: Yes Hydration Status Stable: Yes Pain Control Satisfactory: Yes Nausea and Vomiting Control Satisfactory: Yes Mental Status Recovered: Yes Vital Signs: Last Vital Signs Temp 36.7 C 09/20/20 07:22 Pulse 75 09/20/20 07:22 Resp 16 09/20/20 07:22 BP 126/63 09/20/20 07:22 Pulse Ox 94 L 09/20/20 07:22 - COMMENTS/OBSERVATIONS Free Text/Narrative:: no anesthesia complications noted
[2020-09-20] MEDS: Heparin Sodium 5,000 Units/ML Vial SUBCUT SCH ×2 (08:30→15:22)
[2020-09-21] MEDS: Heparin Sodium 5,000 Units/ML Vial SUBCUT SCH ×3 (00:35→15:25)
[2020-09-21] MEDS: Acetaminophen 325 MG Tab PO SCH ×5 (00:36→15:25)
[2020-09-21] MEDS: Ondansetron 4 MG Tab.DIS PO SCH ×3 (00:36→13:21)
[2020-09-21] MEDS: Ibuprofen 600 MG Tab PO SCH ×3 (02:06→15:25)
--- NOTE | 2020-09-21 08:14 | PCM.SURGPN ---
- General Info Date of Service: 09/21/20 POD#: 1 Admission Diagnosis/Problem: Acute appendicitis Functional Status: Reports: Pain Controlled, Tolerating Diet, Ambulating, Urinating, Other (has no BM or flatus yet) - Patient Data Vitals - Most Recent: Last Vital Signs Temp 36.4 C 09/21/20 07:41 Pulse 71 09/21/20 07:41 Resp 16 09/21/20 07:41 BP 114/81 09/21/20 07:41 Pulse Ox 95 09/21/20 07:41 Weight - Most Recent: 109.588 kg I&O - Last 24 Hours: Intake & Output 09/20/20 09/21/20 09/21/20 22:59 06:59 14:59 Intake Total 1615 1720 Output Total 450 800 Balance 1165 920 Lab Results Last 24 Hrs: Laboratory Results - last 24 hr 09/20/20 09/20/20 09/21/20 Range/Units 09:04 09:04 06:15 WBC 22.26 H 14.60 H (3.98-10.04) K/mm3 RBC 4.31 4.08 (3.98-5.22) M/mm3 Hgb 13.5 D 12.9 (11.2-15.7) gm/dl Hct 40.2 38.4 (34.1-44.9) % MCV 93.3 94.1 (79.4-94.8) fl MCH 31.3 31.6 (25.6-32.2) pg MCHC 33.6 33.6 (32.2-35.5) g/dl RDW Std Deviation 41.8 43.0 (36.4-46.3) fL Plt Count 237 222 (182-369) K/mm3 MPV 10.9 10.9 (9.4-12.3) fl Neut % (Auto) 87.3 H 76.7 H (34.0-71.1) % Lymph % (Auto) 6.0 L 14.2 L (19.3-51.7) % [place] % (Auto) 6.4 7.9 (4.7-12.5) % Eos % (Auto) 0 L 0.7 (0.7-5.8) Baso % (Auto) 0.0 L 0.1 (0.1-1.2) % Neut # (Auto) 19.43 H 11.19 H (1.56-6.13) K/mm3 Lymph # (Auto) 1.33 2.07 (1.18-3.74) K/mm3 [place] # (Auto) 1.43 H 1.16 H (0.24-0.36) K/mm3 Eos # (Auto) 0.00 L 0.10 (0.04-0.36) K/mm3 Baso # (Auto) 0.01 0.02 (0.01-0.08) K/mm3 Manual Slide Review Abnormal smear Sodium 135 L (136-145) mEq/L Potassium 3.8 (3.5-5.1) mEq/L Chloride 100 (98-107) mEq/L Carbon Dioxide 22 (21-32) mEq/L Anion Gap 16.8 H (5-15) BUN 17 (7-18) mg/dL Creatinine 1.1 H (0.55-1.02) mg/dL Est Cr Clr Drug Dosing 56.84 mL/min Estimated GFR (MDRD) 51 (>60) mL/min BUN/Creatinine Ratio 15.5 (14-18) Glucose 177 H (74-106) mg/dL Calcium 8.2 L (8.5-10.1) mg/dL Med Orders - Current: Current Medications Acetaminophen (Acetaminophen 325 Mg Tab) 650 mg PO Q4H [facility] Last Admin: 09/21/20 06:29 Dose: 650 mg Documented by: Albuterol (Albuterol 0.083% 2.5 Mg/3 Ml Neb Soln) 2.5 mg NEB ONETIME PRN PRN Reason: bronchodilation Diphenhydramine HCl (Diphenhydramine 50 Mg/Ml Sdv) 25 mg IVPUSH Q6H PRN PRN Reason: pruritis Ephedrine Sulfate (Ephedrine 50 Mg/Ml Sdv) 5 mg IVPUSH ASDIRECTED PRN PRN Reason: Hypotension Heparin Sodium (Porcine) (Heparin Sodium 5,000 Units/Ml Vial) 5,000 units SUBCUT Q8H [facility] Last Admin: 09/21/20 00:35 Dose: 5,000 units Documented by: Ibuprofen (Ibuprofen 600 Mg Tab) 600 mg PO Q6H [facility] Last Admin: 09/21/20 02:06 Dose: 600 mg Documented by: Ondansetron HCl (Ondansetron 4 Mg Tab.Dis) 4 mg PO Q6H [facility] Last Admin: 09/21/20 06:29 Dose: 4 mg Documented by: Oxycodone HCl (Oxycodone 5 Mg Tab) 5 mg PO Q4H PRN PRN Reason: Pain (moderate 4-6) Sodium Chloride (Sodium Chloride 0.9% 10 Ml Syringe) 10 ml FLUSH ASDIRECTED [facility] Discontinued Medications Acetaminophen (Acetaminophen 325 Mg Tab) 650 mg PO Q4H [facility] Last Admin: 09/20/20 05:58 Dose: Not Given Documented by: Bupivacaine HCl/Epinephrine Bitart (Bupivacaine 0.5%/Epinephrine 1:200,000 50 Ml Mdv) Confirm Administered Dose 50 ml .ROUTE .STK-MED ONE Stop: 09/19/20 20:18 Last Admin: 09/19/20 21:33 Dose: 30 ml Documented by: Dexamethasone (Dexamethasone 4 Mg/Ml 5 Ml Mdv) Confirm Administered Dose 20 mg .ROUTE .STK-MED ONE Stop: 09/19/20 20:42 Diatrizoate Meglum/Diatrizoate Sod (Diatrizoate Meglumine/Diatrizoate Sodium 37% 120 Ml Bottle) 120 ml PO ONETIME ONE Stop: 09/19/20 18:17 Last Admin: 09/19/20 19:17 Dose: 45 ml Documented by: Ephedrine Sulfate (Ephedrine 50 Mg/Ml Sdv) Confirm Administered Dose 50 mg .ROUTE .STK-MED ONE Stop: 09/19/20 21:17 Fentanyl (Fentanyl 250 Mcg/5 Ml Sdv) Confirm Administered Dose 250 mcg .ROUTE .STK-MED ONE Stop: 09/19/20 20:43 Fentanyl (Fentanyl 100 Mcg/2 Ml Sdv) 50 mcg IVPUSH Q20M PRN PRN Reason: Pain Fentanyl (Fentanyl 250 Mcg/5 Ml Sdv) Confirm Administered Dose 250 mcg .ROUTE .STK-MED ONE Stop: 09/19/20 21:40 Glycopyrrolate (Glycopyrrolate 0.2 Mg/Ml 2 Ml Syringe) Confirm Administered Dose 1.2 mg .ROUTE .STK-MED ONE Stop: 09/19/20 21:53 Hydromorphone HCl (Hydromorphone 1 Mg/Ml Syringe) 1 mg IVPUSH ONETIME ONE Stop: 09/19/20 17:30 Last Admin: 09/19/20 17:36 Dose: 1 mg Documented by: Hydromorphone HCl (Hydromorphone 0.5 Mg/0.5 Ml Syringe) Confirm Administered Dose 0.5 mg .ROUTE .STK-MED ONE Stop: 09/19/20 20:42 Hydromorphone HCl (Hydromorphone 0.5 Mg/0.5 Ml Syringe) 0.5 mg IVPUSH Q10M PRN PRN Reason: Pain (severe 7-10) Hydromorphone HCl (Hydromorphone 0.5 Mg/0.5 Ml Syringe) Confirm Administered Dose 0.5 mg .ROUTE .STK-MED ONE Stop: 09/19/20 22:26 Sodium Chloride (Normal Saline) 1,000 mls @ 1,000 mls/hr IV .BOLUS STA Stop: 09/19/20 18:27 Last Admin: 09/19/20 17:36 Dose: 1,000 mls/hr Documented by: Lactated Ringer's (Ringers, Lactated) 1,000 mls @ 100 mls/hr IV ASDIRECTED ANA LAURA Piperacillin Sod/Tazobactam (Sod 4.5 gm/ Sodium Chloride) 100 mls @ 200 mls/hr IV ONETIME ONE Stop: 09/19/20 20:09 Last Admin: 09/19/20 19:53 Dose: 200 mls/hr Documented by: Lidocaine HCl (Xylocaine-Mpf 1%) Confirm Administered Dose 4 mls @ as directed .ROUTE .STK-MED ONE Stop: 09/19/20 20:42 Lactated Ringer's (Ringers, Lactated) Confirm Administered Dose 2,000 mls @ as directed .ROUTE .STK-MED ONE Stop: 09/19/20 20:42 Lactated Ringer's (Ringers, Lactated) Confirm Administered Dose 1,000 mls @ as directed .ROUTE .STK-MED ONE Stop: 09/19/20 22:41 Piperacillin Sod/Tazobactam (Sod 4.5 gm/ Sodium Chloride) 100 mls @ 25 mls/hr IV Q8H ANA LAURA Stop: 09/20/20 15:59 Last Admin: 09/20/20 12:46 Dose: 25 mls/hr Documented by: Dextrose/Sodium Chloride (Dextrose 5%-1/2 Ns) 1,000 mls @ 75 mls/hr IV ASDIRECTED [facility] Last Admin: 09/20/20 08:24 Dose: 75 mls/hr Documented by: Ibuprofen (Ibuprofen 600 Mg Tab) 600 mg PO Q6H [facility] Last Admin: 09/20/20 05:58 Dose: Not Given Documented by: Iopamidol (Iopamidol 612 Mg/Ml 50 Ml Sdv) 50 ml IVPUSH ONETIME ONE Stop: 09/19/20 18:17 Last Admin: 09/19/20 19:18 Dose: 50 ml Documented by: Iopamidol (Iopamidol 612 Mg/Ml 100 Ml Bottle) 100 ml IVPUSH ONETIME ONE Stop: 09/19/20 18:17 Last Admin: 09/19/20 19:18 Dose: 100 ml Documented by: Ketorolac Tromethamine (Ketorolac 30 Mg/Ml Sdv) Confirm Administered Dose 30 mg .ROUTE .STK-MED ONE Stop: 09/19/20 20:42 Labetalol HCl (Labetalol 100 Mg/20 Ml Mdv) Confirm Administered Dose 100 mg .ROUTE .STK-MED ONE Stop: 09/19/20 21:47 Lidocaine/Epinephrine (Lidocaine 1% With Epinephrine 1:100,000 10 Ml Mdv) Confirm Administered Dose 30 ml .ROUTE .STK-MED ONE Stop: 09/19/20 20:18 Last Admin: 09/19/20 21:33 Dose: 30 ml Documented by: Metoclopramide HCl (Metoclopramide 10 Mg/2 Ml Sdv) 10 mg IVPUSH ONETIME ONE Stop: 09/19/20 18:36 Last Admin: 09/19/20 18:39 Dose: 10 mg Documented by: Midazolam HCl (Midazolam 1 Mg/Ml 2 Ml Sdv) Confirm Administered Dose 2 mg .ROUTE .STK-MED ONE Stop: 09/19/20 20:43 Miscellaneous Medication (Phenylephrine Hcl In 0.9% Nacl 1 Mg/10 Ml Syringe) 0.1 mg IVPUSH Q10M PRN PRN Reason: Hypotension Neostigmine Methylsulfate (Neostigmine Methylsulfate 5 Mg/5 Ml Syringe) Confirm Administered Dose 5 mg .ROUTE .STK-MED ONE Stop: 09/19/20 21:53 Ondansetron HCl (Ondansetron 4 Mg/2 Ml Sdv) 4 mg IVPUSH ONETIME ONE Stop: 09/19/20 17:29 Last Admin: 09/19/20 17:36 Dose: 4 mg Documented by: Ondansetron HCl (Ondansetron 4 Mg/2 Ml Sdv) Confirm Administered Dose 4 mg .ROUTE .STK-MED ONE Stop: 09/19/20 20:42 Ondansetron HCl (Ondansetron 4 Mg/2 Ml Sdv) 4 mg IVPUSH ONETIME PRN PRN Reason: Nausea/Vomiting Propofol (Propofol 200 Mg/20 Ml Sdv) Confirm Administered Dose 200 mg .ROUTE .STK-MED ONE Stop: 09/19/20 20:42 Rocuronium [place] (Rocuronium 50 Mg/5 Ml Vial) Confirm Administered Dose 50 mg .ROUTE .STK-MED ONE Stop: 09/19/20 20:42 Rocuronium [place] (Rocuronium 50 Mg/5 Ml Vial) Confirm Administered Dose 50 mg .ROUTE .STK-MED ONE Stop: 09/19/20 22:13 Sodium Chloride (Sodium Chloride 0.9% 10 Ml Syringe) 10 ml FLUSH ASDIRECTED PRN PRN Reason: Keep Vein Open Last Admin: 09/19/20 19:18 Dose: 10 ml Documented by: - Exam Wound/Incisions: Healing Well, Dressing Dry and Intact, No Drainage Quality Assessment: No: Supplemental Oxygen General: Alert, Oriented Lungs: Normal Respiratory Effort GI/Abdominal Exam: Soft, Tender (in RLQ to palpation) Sepsis Event Note - Evaluation Sepsis Screening Result: No Definite Risk - Focused Exam Vital Signs: Vital Signs Temp Pulse Resp BP Pulse Ox 09/21/20 07:41 36.4 C 71 16 114/81 95 09/21/20 00:47 36.4 C 72 18 120/68 95 09/20/20 20:12 36.8 C 72 18 112/58 L 96 - Problem List & Annotations (1) Appendicitis SNOMED Code(s): 52240846 Code(s): K37 - UNSPECIFIED APPENDICITIS Status: Acute Current Visit: Yes Qualifiers: Appendicitis type: acute appendicitis Acute appendicitis type: other Qualified Code(s): K35.890 - Other acute appendicitis without perforation or gangrene; K35.89 - Other acute appendicitis - Problem List Review Problem List Initiated/Reviewed/Updated: Yes - My Orders Last 24 Hours: Active Orders 24 hr Category Date Time Status Heparin Sodium Med 09/20/20 08:00 Active 5,000 units SUBCUT Q8H Medication Orders Acetaminophen (Acetaminophen 325 Mg Tab) 650 mg PO Q4H [facility] Last Admin: 09/21/20 06:29 Dose: 650 mg Documented by: Admin: 09/21/20 02:06 Dose: 650 mg Documented by: Admin: 09/21/20 00:36 Dose: 650 mg Documented by: Admin: 09/20/20 18:51 Dose: 650 mg Documented by: Admin: 09/20/20 15:22 Dose: 650 mg Documented by: Admin: 09/20/20 11:26 Dose: 650 mg Documented by: Admin: 09/20/20 06:40 Dose: 650 mg Documented by: Admin: 09/20/20 03:26 Dose: 650 mg Documented by: GEREMIAS Albuterol (Albuterol 0.083% 2.5 Mg/3 Ml Neb Soln) 2.5 mg NEB ONETIME PRN PRN Reason: bronchodilation Diphenhydramine HCl (Diphenhydramine 50 Mg/Ml Sdv) 25 mg IVPUSH Q6H PRN PRN Reason: pruritis Ephedrine Sulfate (Ephedrine 50 Mg/Ml Sdv) 5 mg IVPUSH ASDIRECTED PRN PRN Reason: Hypotension Heparin Sodium (Porcine) (Heparin Sodium 5,000 Units/Ml Vial) 5,000 units SUBCUT Q8H [facility] Last Admin: 09/21/20 00:35 Dose: 5,000 units Documented by: Admin: 09/20/20 15:22 Dose: 5,000 units Documented by: Admin: 09/20/20 08:30 Dose: 5,000 units Documented by: RODRIGUE Ibuprofen (Ibuprofen 600 Mg Tab) 600 mg PO Q6H [facility] Last Admin: 09/21/20 02:06 Dose: 600 mg Documented by: Admin: 09/20/20 21:42 Dose: 600 mg Documented by: Admin: 09/20/20 15:22 Dose: 600 mg Documented by: Admin: 09/20/20 08:19 Dose: 600 mg Documented by: Admin: 09/20/20 03:25 Dose: 600 mg Documented by: GEREMIAS Ondansetron HCl (Ondansetron 4 Mg Tab.Dis) 4 mg PO Q6H [facility] Last Admin: 09/21/20 06:29 Dose: 4 mg Documented by: Admin: 09/21/20 00:36 Dose: 4 mg Documented by: Admin: 09/20/20 18:50 Dose: 4 mg Documented by: Admin: 09/20/20 12:46 Dose: 4 mg Documented by: Admin: 09/20/20 06:41 Dose: 4 mg Documented by: Admin: 09/20/20 03:27 Dose: 4 mg Documented by: GEREMIAS Oxycodone HCl (Oxycodone 5 Mg Tab) 5 mg PO Q4H PRN PRN Reason: Pain (moderate 4-6) Sodium Chloride (Sodium Chloride 0.9% 10 Ml Syringe) 10 ml FLUSH ASDIRECTED ANA LAURA - Assessment Assessment (Free Text/Narrative):: 60 y/o lady with appendicitis, POD1 s/p open appendectomy. Doing well - Plan Plan (Free Text/Narrative):: - await ROBF - d/c IVF since patient is tolerating PO - ambulation, SCDs and heparin. - Pt encouraged to ambulate for bowel stimulation. May also chew gum as desired - continue current pain regimen Carmela Castillo MD General surgery
--- NOTE | 2020-09-21 17:48 | PCM.DCSUM1 ---
Discharge Summary - Hospital Course Free Text/Narrative:: The patient is a 60 y/o lady who presented with acute appendicitis. She was taken for a laparoscopic appendectomy that was converted to open for the level of inflammation and cecal repair. She was admitted to the hospital for postoperative monitoring. She had return of bowel function on POD2 and was discharged home Diagnosis: Stroke: No Modified Alvarado Scale: No Signif.Disability Despite Sympt.Able to Carry Out Usual Act./Duties Modified Mandi Scale Score: 1 - Discharge Data Discharge Date: 09/21/20 Discharge Disposition: Home, Self-Care 01 Condition: Good - Referral to Home Health Primary Care Physician: PCP None - Discharge Diagnosis/Problem(s) (1) Appendicitis SNOMED Code(s): 98353353 ICD Code: K37 - UNSPECIFIED APPENDICITIS Status: Acute Qualifiers: Appendicitis type: acute appendicitis Acute appendicitis type: other Qualified Code(s): K35.890 - Other acute appendicitis without perforation or gangrene; K35.89 - Other acute appendicitis - Patient Summary/Data Operative Procedure(s) Performed: 1. Laparoscopic appendectomy, converted to open. 2. Repair of enterotomy. 3. Mobilization of cecum. 4. Lysis of adhesions - Patient Instructions Diet: Usual Diet as Tolerated Activity: As Tolerated, No Lifting Over 20 Pounds (for 2 weeks), No Lifting Over 25 Pounds (for 4 weeks), No Strenuous Activities (for 2 weeks) Showering/Bathing: May Shower, No Tub Bathing/Swimming (for 2 weeks) Wound/Incision Care: Keep Operative Site/Wound Site Clean and Dry Notify Provider of: Fever, Increased Pain, Swelling and Redness, Drainage, Nausea and/or Vomiting - Discharge Plan *PRESCRIPTION DRUG MONITORING PROGRAM REVIEWED*: Not Applicable *COPY OF PRESCRIPTION DRUG MONITORING REPORT IN PATIENT SHAHANA: Not Applicable Prescriptions/Med Rec: Ibuprofen [Motrin] 600 mg PO Q6H PRN 20 Days #60 tablet PRN Reason: Pain (Mild 1-3) oxyCODONE 5 mg PO Q4H PRN 14 Days #10 tablet PRN Reason: Pain (Moderate 4-6) Home Medications: Home Meds Acetaminophen [Tylenol] 650 mg PO Q4H tablet 09/21/20 [Rx] Ibuprofen [Motrin] 600 mg PO Q6H PRN 20 Days #60 tablet 09/21/20 [Rx] oxyCODONE 5 mg PO Q4H PRN 14 Days #10 tablet 09/21/20 [Rx] Patient Handouts: Open Appendectomy, Adult, Care After, Open Appendectomy, Adult Forms: ED Department Discharge Referrals: Chelita Valladares PA-C [Physician Deicer Repairer] - Carmela Castillo MD [Physician] - (follow up in 2 weeks) - Discharge Summary/Plan Comment DC Time >30 min.: No - Patient Data Vitals - Most Recent: Last Vital Signs Temp 36.4 C 09/21/20 15:13 Pulse 79 09/21/20 15:13 Resp 16 09/21/20 15:13 BP 110/69 09/21/20 15:13 Pulse Ox 97 09/21/20 15:13 Weight - Most Recent: 109.588 kg I&O - Last 24 hours: Intake & Output 09/21/20 09/21/20 09/21/20 06:59 14:59 22:59 Intake Total 0933 016 6696 Output Total 800 1950 Balance 920 160 -550 Lab Results - Last 24 hrs: Laboratory Results - last 24 hr 09/21/20 Range/Units 06:15 WBC 14.60 H (3.98-10.04) K/mm3 RBC 4.08 (3.98-5.22) M/mm3 Hgb 12.9 (11.2-15.7) gm/dl Hct 38.4 (34.1-44.9) % MCV 94.1 (79.4-94.8) fl MCH 31.6 (25.6-32.2) pg MCHC 33.6 (32.2-35.5) g/dl RDW Std Deviation 43.0 (36.4-46.3) fL Plt Count 222 (182-369) K/mm3 MPV 10.9 (9.4-12.3) fl Neut % (Auto) 76.7 H (34.0-71.1) % Lymph % (Auto) 14.2 L (19.3-51.7) % [place] % (Auto) 7.9 (4.7-12.5) % Eos % (Auto) 0.7 (0.7-5.8) Baso % (Auto) 0.1 (0.1-1.2) % Neut # (Auto) 11.19 H (1.56-6.13) K/mm3 Lymph # (Auto) 2.07 (1.18-3.74) K/mm3 [place] # (Auto) 1.16 H (0.24-0.36) K/mm3 Eos # (Auto) 0.10 (0.04-0.36) K/mm3 Baso # (Auto) 0.02 (0.01-0.08) K/mm3 Med Orders - Current: Current Medications Acetaminophen (Acetaminophen 325 Mg Tab) 650 mg PO Q4H [facility] Last Admin: 09/21/20 15:25 Dose: 650 mg Documented by: Albuterol (Albuterol 0.083% 2.5 Mg/3 Ml Neb Soln) 2.5 mg NEB ONETIME PRN PRN Reason: bronchodilation Diphenhydramine HCl (Diphenhydramine 50 Mg/Ml Sdv) 25 mg IVPUSH Q6H PRN PRN Reason: pruritis Ephedrine Sulfate (Ephedrine 50 Mg/Ml Sdv) 5 mg IVPUSH ASDIRECTED PRN PRN Reason: Hypotension Heparin Sodium (Porcine) (Heparin Sodium 5,000 Units/Ml Vial) 5,000 units SUBCUT Q8H [facility] Last Admin: 09/21/20 15:25 Dose: 5,000 units Documented by: Ibuprofen (Ibuprofen 600 Mg Tab) 600 mg PO Q6H [facility] Last Admin: 09/21/20 15:25 Dose: 600 mg Documented by: Ondansetron HCl (Ondansetron 4 Mg Tab.Dis) 4 mg PO Q6H [facility] Last Admin: 09/21/20 13:21 Dose: 4 mg Documented by: Oxycodone HCl (Oxycodone 5 Mg Tab) 5 mg PO Q4H PRN PRN Reason: Pain (moderate 4-6) Sodium Chloride (Sodium Chloride 0.9% 10 Ml Syringe) 10 ml FLUSH ASDIRECTED [facility] Discontinued Medications Acetaminophen (Acetaminophen 325 Mg Tab) 650 mg PO Q4H [facility] Last Admin: 09/20/20 05:58 Dose: Not Given Documented by: Bupivacaine HCl/Epinephrine Bitart (Bupivacaine 0.5%/Epinephrine 1:200,000 50 Ml Mdv) Confirm Administered Dose 50 ml .ROUTE .STK-MED ONE Stop: 09/19/20 20:18 Last Admin: 09/19/20 21:33 Dose: 30 ml Documented by: Dexamethasone (Dexamethasone 4 Mg/Ml 5 Ml Mdv) Confirm Administered Dose 20 mg .ROUTE .STK-MED ONE Stop: 09/19/20 20:42 Diatrizoate Meglum/Diatrizoate Sod (Diatrizoate Meglumine/Diatrizoate Sodium 37% 120 Ml Bottle) 120 ml PO ONETIME ONE Stop: 09/19/20 18:17 Last Admin: 09/19/20 19:17 Dose: 45 ml Documented by: Ephedrine Sulfate (Ephedrine 50 Mg/Ml Sdv) Confirm Administered Dose 50 mg .ROUTE .STK-MED ONE Stop: 09/19/20 21:17 Fentanyl (Fentanyl 250 Mcg/5 Ml Sdv) Confirm Administered Dose 250 mcg .ROUTE .STK-MED ONE Stop: 09/19/20 20:43 Fentanyl (Fentanyl 100 Mcg/2 Ml Sdv) 50 mcg IVPUSH Q20M PRN PRN Reason: Pain Fentanyl (Fentanyl 250 Mcg/5 Ml Sdv) Confirm Administered Dose 250 mcg .ROUTE .STK-MED ONE Stop: 09/19/20 21:40 Glycopyrrolate (Glycopyrrolate 0.2 Mg/Ml 2 Ml Syringe) Confirm Administered Dose 1.2 mg .ROUTE .STK-MED ONE Stop: 09/19/20 21:53 Hydromorphone HCl (Hydromorphone 1 Mg/Ml Syringe) 1 mg IVPUSH ONETIME ONE Stop: 09/19/20 17:30 Last Admin: 09/19/20 17:36 Dose: 1 mg Documented by: Hydromorphone HCl (Hydromorphone 0.5 Mg/0.5 Ml Syringe) Confirm Administered Dose 0.5 mg .ROUTE .STK-MED ONE Stop: 09/19/20 20:42 Hydromorphone HCl (Hydromorphone 0.5 Mg/0.5 Ml Syringe) 0.5 mg IVPUSH Q10M PRN PRN Reason: Pain (severe 7-10) Hydromorphone HCl (Hydromorphone 0.5 Mg/0.5 Ml Syringe) Confirm Administered Dose 0.5 mg .ROUTE .STK-MED ONE Stop: 09/19/20 22:26 Sodium Chloride (Normal Saline) 1,000 mls @ 1,000 mls/hr IV .BOLUS STA Stop: 09/19/20 18:27 Last Admin: 09/19/20 17:36 Dose: 1,000 mls/hr Documented by: Lactated Ringer's (Ringers, Lactated) 1,000 mls @ 100 mls/hr IV ASDIRECTED [facility] Piperacillin Sod/Tazobactam (Sod 4.5 gm/ Sodium Chloride) 100 mls @ 200 mls/hr IV ONETIME ONE Stop: 09/19/20 20:09 Last Admin: 09/19/20 19:53 Dose: 200 mls/hr Documented by: Lidocaine HCl (Xylocaine-Mpf 1%) Confirm Administered Dose 4 mls @ as directed .ROUTE .STK-MED ONE Stop: 09/19/20 20:42 Lactated Ringer's (Ringers, Lactated) Confirm Administered Dose 2,000 mls @ as directed .ROUTE .STK-MED ONE Stop: 09/19/20 20:42 Lactated Ringer's (Ringers, Lactated) Confirm Administered Dose 1,000 mls @ as directed .ROUTE .STK-MED ONE Stop: 09/19/20 22:41 Piperacillin Sod/Tazobactam (Sod 4.5 gm/ Sodium Chloride) 100 mls @ 25 mls/hr IV Q8H [facility] Stop: 09/20/20 15:59 Last Admin: 09/20/20 12:46 Dose: 25 mls/hr Documented by: Dextrose/Sodium Chloride (Dextrose 5%-1/2 Ns) 1,000 mls @ 75 mls/hr IV ASDIRECTED [facility] Last Admin: 09/20/20 08:24 Dose: 75 mls/hr Documented by: Ibuprofen (Ibuprofen 600 Mg Tab) 600 mg PO Q6H [facility] Last Admin: 09/20/20 05:58 Dose: Not Given Documented by: Iopamidol (Iopamidol 612 Mg/Ml 50 Ml Sdv) 50 ml IVPUSH ONETIME ONE Stop: 09/19/20 18:17 Last Admin: 09/19/20 19:18 Dose: 50 ml Documented by: Iopamidol (Iopamidol 612 Mg/Ml 100 Ml Bottle) 100 ml IVPUSH ONETIME ONE Stop: 09/19/20 18:17 Last Admin: 09/19/20 19:18 Dose: 100 ml Documented by: Ketorolac Tromethamine (Ketorolac 30 Mg/Ml Sdv) Confirm Administered Dose 30 mg .ROUTE .STK-MED ONE Stop: 09/19/20 20:42 Labetalol HCl (Labetalol 100 Mg/20 Ml Mdv) Confirm Administered Dose 100 mg .ROUTE .STK-MED ONE Stop: 09/19/20 21:47 Lidocaine/Epinephrine (Lidocaine 1% With Epinephrine 1:100,000 10 Ml Mdv) Confirm Administered Dose 30 ml .ROUTE .STK-MED ONE Stop: 09/19/20 20:18 Last Admin: 09/19/20 21:33 Dose: 30 ml Documented by: Metoclopramide HCl (Metoclopramide 10 Mg/2 Ml Sdv) 10 mg IVPUSH ONETIME ONE Stop: 09/19/20 18:36 Last Admin: 09/19/20 18:39 Dose: 10 mg Documented by: Midazolam HCl (Midazolam 1 Mg/Ml 2 Ml Sdv) Confirm Administered Dose 2 mg .ROUTE .STK-MED ONE Stop: 09/19/20 20:43 Miscellaneous Medication (Phenylephrine Hcl In 0.9% Nacl 1 Mg/10 Ml Syringe) 0.1 mg IVPUSH Q10M PRN PRN Reason: Hypotension Neostigmine Methylsulfate (Neostigmine Methylsulfate 5 Mg/5 Ml Syringe) Confirm Administered Dose 5 mg .ROUTE .STK-MED ONE Stop: 09/19/20 21:53 Ondansetron HCl (Ondansetron 4 Mg/2 Ml Sdv) 4 mg IVPUSH ONETIME ONE Stop: 09/19/20 17:29 Last Admin: 09/19/20 17:36 Dose: 4 mg Documented by: Ondansetron HCl (Ondansetron 4 Mg/2 Ml Sdv) Confirm Administered Dose 4 mg .ROUTE .STK-MED ONE Stop: 09/19/20 20:42 Ondansetron HCl (Ondansetron 4 Mg/2 Ml Sdv) 4 mg IVPUSH ONETIME PRN PRN Reason: Nausea/Vomiting Propofol (Propofol 200 Mg/20 Ml Sdv) Confirm Administered Dose 200 mg .ROUTE .STK-MED ONE Stop: 09/19/20 20:42 Rocuronium [place] (Rocuronium 50 Mg/5 Ml Vial) Confirm Administered Dose 50 mg .ROUTE .STK-MED ONE Stop: 09/19/20 20:42 Rocuronium [place] (Rocuronium 50 Mg/5 Ml Vial) Confirm Administered Dose 50 mg .ROUTE .STK-MED ONE Stop: 09/19/20 22:13 Sodium Chloride (Sodium Chloride 0.9% 10 Ml Syringe) 10 ml FLUSH ASDIRECTED PRN PRN Reason: Keep Vein Open Last Admin: 09/19/20 19:18 Dose: 10 ml Documented by:
== END 2020-09-21 19:00 | disposition home or self-care (01) | DRG 224 ==
LOC: JD.ED 16:56 → JD.SDS 20:02 → JD.MS 09-20 02:03
PROVIDERS: ADMIT Surgery; ATTEND Surgery
PROC: 0DTJ0ZZ Resection of Appendix, Open Approach (ICD-10-PCS; principal; 2020-09-20)
PROC: 0WJG4ZZ Inspection of Peritoneal Cavity, Percutaneous Endoscopic Approach (ICD-10-PCS; 2020-09-20)
PROC: 0DNU0ZZ Release Omentum, Open Approach (ICD-10-PCS; 2020-09-20)
PROC: 0DQH0ZZ Repair Cecum, Open Approach (ICD-10-PCS; 2020-09-20)
PROC: 0DNH4ZZ Release Cecum, Percutaneous Endoscopic Approach (ICD-10-PCS; 2020-09-20)
DX: K35.890 Other acute appendicitis without perforation or gangrene (principal); Z20.822 Contact with and (suspected) exposure to COVID-19; Z88.1 Allergy status to other antibiotic agents; Z53.31 Laparoscopic surgical procedure converted to open procedure
CPT/HCPCS: 00790; 36415; 74177; 74177-26; 80048; 80053; 81001; 83690; 85025; 94761; 96374; 96375; 99284; 99285-25; A9270-GY; J0330; J1100; J1170; J1644; J1885; J2250; J2405; J2543; J2704; J2710; J2765; J3010; J3490; J7030; J7042; J7120; Q9963; Q9967; U0002

== ENCOUNTER 2024-02-04 09:05 | Observation (INO) | payer BC ==
[2024-02-04] MEDS: HYDROmorphone 1 MG/ML Syringe IM ONE (09:34)
[2024-02-04] MEDS: HYDROmorphone 0.5 MG/0.5 ML Syringe IM ONE (11:25)
[2024-02-04] MEDS ORDERED: Ondansetron 4 MG Tab.DIS PO PRN (14:31)
[2024-02-04] MEDS ORDERED: oxyCODONE 5 MG Tab PO PRN (14:31)
[2024-02-04] MEDS ORDERED: Docusate Sodium 100 MG Cap PO PRN (14:31)
[2024-02-04] MEDS: Enoxaparin 40 MG/0.4 ML Syringe SUBCUT SCH (14:57)
[2024-02-04] MEDS: oxyCODONE 5 MG Tab PO PRN (16:05)
[2024-02-04] MEDS: Acetaminophen 325 MG Tab PO PRN (23:46)
[2024-02-05] MEDS ORDERED: Enoxaparin 40 MG/0.4 ML Syringe SUBCUT SCH (09:00)
[2024-02-05] MEDS ORDERED: Non-Formulary Medication 1 Each (Fluticasone/Vilanterol [Breo Ellipta 50-25 Mcg Inhaler] 1 INH SCH (09:00)
== END 2024-02-05 10:45 | disposition home or self-care (01) ==
LOC: JD.ED 09:05 → JD.MS 14:31 → MERGE 14:31
PROVIDERS: ADMIT Family Medicine; ATTEND Family Medicine
DX: S42.402A Unspecified fracture of lower end of left humerus, initial encounter for closed fracture (principal); S82.092A Other fracture of left patella, initial encounter for closed fracture; J30.2 Other seasonal allergic rhinitis; W18.30XA Fall on same level, unspecified, initial encounter; Z88.1 Allergy status to other antibiotic agents; Z01.812 Encounter for preprocedural laboratory examination
CPT/HCPCS: 29105; 73080; 73564; 87641; 96372; 97161; 99284; A9270; G0378; J1170; 29125; 99222; 99238; 99283

== ENCOUNTER 2024-11-30 15:43 | Emergency (ER) | payer BC ==
[2024-11-30] MEDS: Acetaminophen/oxyCODONE 325-5 MG Tab PO ONE (17:45)
== END 2024-11-30 19:02 | disposition home or self-care (01) ==
LOC: JD.ED 15:43
DX: M25.522 Pain in left elbow (principal); M25.512 Pain in left shoulder; Z90.49 Acquired absence of other specified parts of digestive tract; Z88.1 Allergy status to other antibiotic agents; Z79.82 Long term (current) use of aspirin; Z79.899 Other long term (current) drug therapy; W18.30XA Fall on same level, unspecified, initial encounter
CPT/HCPCS: 73030; 73060; 73080; 99283; A9270